=== PATIENT | female | born 1970 | race Caucasian/White ===

== ENCOUNTER 2016-08-17 12:22 | Emergency (ER) | payer OTHER ==
--- NOTE | 2016-08-17 15:30 | ED CLINICAL REPORT ---
Clinical Report - Physicians/Mid Levels [facility] [address] [place] [address] 08/17/2016 12:26 Patient: IVIS POWELL Time Seen: 12:50. Arrived- By private vehicle. Historian- patient. HISTORY OF PRESENT ILLNESS Chief Complaint: ABDOMINAL PAIN and NAUSEA. At its maximum, severity described as moderate. When seen in the E.D., severity described as moderate. Modifying factors. Not worsened by anything. Not relieved by anything. It is described as "pain" and it is described as located in the upper abdomen. This started about 3 weeks ago and is still present. The patient has had nausea. No loss of appetite, vomiting or diarrhea. (Pt states she has a history of autoimmune hepatitis, but has not been back to see a specialist since being dx 3 years ago. Pt states she doesn't like "pharmaceuticals", so she has been on supplements to "detox the liver" through a naturopathic doctor. She feels as though something has been worsening with her liver lately, based on the way she's been feeling. No jaundice.). Similar symptoms previously: (Feels similar to when pt was first dx.). Recent medical care: ( Pt had labs done a month ago, and states her numbers were between 200-400 (not sure which was AST, ALT, or alk phos).). Not recently seen/assessed. REVIEW OF SYSTEMS No constipation, black stools, hematemesis, difficulty with urination or pain with urination. No urinary frequency, bloody stools, fever, headache or sore throat. No blurred vision, chest pain, difficulty breathing, cough or joint pain. No skin rash, chills or back pain. Denies current . All systems otherwise negative, except as recorded above. PAST HISTORY Problems: Hepatitis. Additional Surgeries: Breast Augmentation. Cholecystectomy. Fibroid removal. Tonsillectomy. Tummy tuck. Medications: another supplement for liver health. Ashwanda supplement. wellness formula. Adrenal health. Liver cleanse. Liver health. Iron Oral. Vitamin B-12 Oral. Vitamin D Oral. Cymbalta Oral. Percocet Oral. Allergies: No Known Drug Allergy. SOCIAL HISTORY Never smoker. Alcohol use. History of drug use: marijuana. ADDITIONAL NOTES The nursing notes have been reviewed. PHYSICAL EXAM Vital Signs: 08/17/2016 12:30 BP: 150/71. HR: 87. RR: 16. O2 saturation: 9%. Temp: 98.1 F. Pain level now: 5/10. Have been reviewed. Appearance: Alert. Oriented X3. No acute distress. Eyes: Pupils equal, round and reactive to light. Eyes normal inspection. ENT: Nose normal. Neck: Normal inspection. CVS: Normal heart rate and rhythm. Heart sounds normal. Pulses normal. Respiratory: No respiratory distress. Breath sounds normal. Abdomen: Soft. Mild tenderness in the right upper quadrant. Back: Normal inspection. No CVA tenderness. Skin: Skin warm and dry. Normal skin color. No rash. Normal skin turgor. Extremities: Extremities exhibit normal ROM. No lower extremity edema. Neuro: Oriented X 3. No motor deficit. No sensory deficit. LABS, X-RAYS, AND EKG Abdominal Sonogram: Hepatomegaly is present. Pancreas normal. No free fluid. (Surgically absent GB.). Study included the gallbladder and upper abdomen. Prior studies were not available for comparison. The study was interpreted by the radiologist and discussed with the radiologist. Laboratory Tests: CBC w Diff: (SHAYAN: 08/17/2016 12:50) ( MsgRcvd 08/17/2016 13:49) Final results Test Result Flag Units (Reference) WHITE BLOOD COUNT 7.5 K/uL (4.5-11.5) RED BLOOD COUNT 4.78 M/uL (4.00-5.20) HEMOGLOBIN 15.6 gm/dL (12.0-16.0) HEMATOCRIT 46.0 % (36.0-46.0) MEAN CELL VOLUME 96 fL (80-100) MEAN CORPUSCULAR HGB 33 pg (26-34) MEAN CORPUSCULAR HGB CONC 34 g/dL (31-37) RED CELL DISTRIBUTION WIDTH 12.4 % (11.6-14.8) PLATELET COUNT 223 K/uL (150-400) NEUTROPHIL % 73.7 % (50-75) LYMPH % 18.8 L % (25-40) MONO % 5.9 % (3-14) EOSINOPHIL % 1.2 % (0-4) BASOPHIL % 0.4 % (0-2) CMP: (SHAYAN: 08/17/2016 12:50) ( MsgRcvd 08/17/2016 14:12) Final results Test Result Flag Units (Reference) GLUCOSE 98 mg/dL (70-110) BUN 7 mg/dL (7-18) CREATININE 0.8 mg/dL (0.6-1.3) Estimated GFR >60 mL/min Estimated GFR- >60 mL/min Note: Persistent reduction over 3 months in eGFR<60 mL/min/1.73 m2 defines CKD. Patients with eGFR values>=60 mL/min/1.73 m2 may also have CKD if evidence ofpersistent proteinuria. Additional information may be foundat www.kidney.org. SODIUM 142 mmol/L (136-145) POTASSIUM 3.5 mmol/L (3.5-5.1) CHLORIDE 103 mmol/L (98-107) CARBON DIOXIDE 29 mmol/L (21-32) CALCIUM 9.2 mg/dL (8.5-10.1) TOTAL PROTEIN 7.9 g/dL (6.4-8.2) ALBUMIN 4.0 g/dL (3.3-5.0) BILIRUBIN, TOTAL 1.0 mg/dL (0.0-1.0) ALKALINE PHOSPHATASE 162 H U/L (46-116) AST (SGOT) 454 H U/L (15-37) ALT (SGPT) 609 H U/L (12-78) LIPASE 137 U/L (73-393) . Pulse Oximetry: 08/17/2016 12:30 O2 saturation: 9%. (FIO2 - room air). Interpretation: normal. PROGRESS AND PROCEDURES Course of Care: Pt was given a dose of Zofran for nausea, and later, ASA for a headache. She was worked up with labs, which showed a normal white count, but transaminases and alk phos which appear to have risen significantly since the pt's last lab analysis. US did not show any gallstones. I did d/w pt that it is very important that she see her liver specialist again, and discuss the best plan to manage her liver failure. I have d/w her that it is better for her health, in the long-run, to be open to all options, then to continue with a regimen that is not working. Patient counseled in person regarding the patient's stable condition, test results, diagnosis and need for follow-up. Concerns were addressed. Old medical records reviewed. Disposition: Discharged. Condition: stable and improved. CLINICAL IMPRESSION Chronic autoimmune hepatitis. INSTRUCTIONS Drink plenty of fluids. (Your labs show that your liver enzymes are elevated, even beyond what they were the last time they were checked. It is very important that you follow up with a liver specialist regarding this problem. You also need to establish care with a primary care physician, whether it is Dr. Burton or somebody else.). Warnings: GENERAL WARNINGS: Return or contact your physician immediately if your condition worsens or changes unexpectedly, if not improving as expected, or if other problems arise. Your Current Medications: CONTINUE TAKING THE FOLLOWING MEDICATIONS: Adrenal health*. another supplement for liver health*. Ashwanda supplement*. Cymbalta Oral. Iron Oral. Liver cleanse*. Liver health*. Percocet Oral. Vitamin B-12 Oral. Vitamin D Oral. wellness formula*. Prescription Medications: Zofran (orally disintegrating tablets) 4 mg: take 1-2 orally every 6 hours as needed for nausea. Dispense fifteen (15). No refill. Substitution is permissible. Follow-up: Follow up with a specialist Liver care clinic at [facility]: [phone]. Call for the next available appointment. Reason for referral: Untreated and worsening autoimmune hepatitis. Understanding of the discharge instructions verbalized by patient. Follow-up with: [facility], Family [facility], , [address] [place] [address], [address], [place] [phone] Follow up. Call for the next available appointment. Reason for referral: Establish care. (Electronically signed by Angélica Torres MD 08/26/2016 19:50)
--- NOTE | 2016-08-17 15:30 | ED CLINICAL REPORT ---
Clinical Report - Physicians/Mid Levels [facility] [address] [place] [address] 08/17/2016 12:26 Patient: IVIS POWELL Time Seen: 12:50. Arrived- By private vehicle. Historian- patient. HISTORY OF PRESENT ILLNESS Chief Complaint: ABDOMINAL PAIN and NAUSEA. At its maximum, severity described as moderate. When seen in the E.D., severity described as moderate. Modifying factors. Not worsened by anything. Not relieved by anything. It is described as "pain" and it is described as located in the upper abdomen. This started about 3 weeks ago and is still present. The patient has had nausea. No loss of appetite, vomiting or diarrhea. (Pt states she has a history of autoimmune hepatitis, but has not been back to see a specialist since being dx 3 years ago. Pt states she doesn't like "pharmaceuticals", so she has been on supplements to "detox the liver" through a naturopathic doctor. She feels as though something has been worsening with her liver lately, based on the way she's been feeling. No jaundice.). Similar symptoms previously: (Feels similar to when pt was first dx.). Recent medical care: ( Pt had labs done a month ago, and states her numbers were between 200-400 (not sure which was AST, ALT, or alk phos).). Not recently seen/assessed. REVIEW OF SYSTEMS No constipation, black stools, hematemesis, difficulty with urination or pain with urination. No urinary frequency, bloody stools, fever, headache or sore throat. No blurred vision, chest pain, difficulty breathing, cough or joint pain. No skin rash, chills or back pain. Denies current . All systems otherwise negative, except as recorded above. PAST HISTORY Problems: Hepatitis. Additional Surgeries: Breast Augmentation. Cholecystectomy. Fibroid removal. Tonsillectomy. Tummy tuck. Medications: another supplement for liver health. Ashwanda supplement. wellness formula. Adrenal health. Liver cleanse. Liver health. Iron Oral. Vitamin B-12 Oral. Vitamin D Oral. Cymbalta Oral. Percocet Oral. Allergies: No Known Drug Allergy. SOCIAL HISTORY Never smoker. Alcohol use. History of drug use: marijuana. ADDITIONAL NOTES The nursing notes have been reviewed. PHYSICAL EXAM Vital Signs: 08/17/2016 12:30 BP: 150/71. HR: 87. RR: 16. O2 saturation: 9%. Temp: 98.1 F. Pain level now: 5/10. Have been reviewed. Appearance: Alert. Oriented X3. No acute distress. Eyes: Pupils equal, round and reactive to light. Eyes normal inspection. ENT: Nose normal. Neck: Normal inspection. CVS: Normal heart rate and rhythm. Heart sounds normal. Pulses normal. Respiratory: No respiratory distress. Breath sounds normal. Abdomen: Soft. Mild tenderness in the right upper quadrant. Back: Normal inspection. No CVA tenderness. Skin: Skin warm and dry. Normal skin color. No rash. Normal skin turgor. Extremities: Extremities exhibit normal ROM. No lower extremity edema. Neuro: Oriented X 3. No motor deficit. No sensory deficit. LABS, X-RAYS, AND EKG Abdominal Sonogram: Hepatomegaly is present. Pancreas normal. No free fluid. (Surgically absent GB.). Study included the gallbladder and upper abdomen. Prior studies were not available for comparison. The study was interpreted by the radiologist and discussed with the radiologist. Laboratory Tests: CBC w Diff: (SHAYAN: 08/17/2016 12:50) ( MsgRcvd 08/17/2016 13:49) Final results Test Result Flag Units (Reference) WHITE BLOOD COUNT 7.5 K/uL (4.5-11.5) RED BLOOD COUNT 4.78 M/uL (4.00-5.20) HEMOGLOBIN 15.6 gm/dL (12.0-16.0) HEMATOCRIT 46.0 % (36.0-46.0) MEAN CELL VOLUME 96 fL (80-100) MEAN CORPUSCULAR HGB 33 pg (26-34) MEAN CORPUSCULAR HGB CONC 34 g/dL (31-37) RED CELL DISTRIBUTION WIDTH 12.4 % (11.6-14.8) PLATELET COUNT 223 K/uL (150-400) NEUTROPHIL % 73.7 % (50-75) LYMPH % 18.8 L % (25-40) MONO % 5.9 % (3-14) EOSINOPHIL % 1.2 % (0-4) BASOPHIL % 0.4 % (0-2) CMP: (SHAYAN: 08/17/2016 12:50) ( MsgRcvd 08/17/2016 14:12) Final results Test Result Flag Units (Reference) GLUCOSE 98 mg/dL (70-110) BUN 7 mg/dL (7-18) CREATININE 0.8 mg/dL (0.6-1.3) Estimated GFR >60 mL/min Estimated GFR- >60 mL/min Note: Persistent reduction over 3 months in eGFR<60 mL/min/1.73 m2 defines CKD. Patients with eGFR values>=60 mL/min/1.73 m2 may also have CKD if evidence ofpersistent proteinuria. Additional information may be foundat www.kidney.org. SODIUM 142 mmol/L (136-145) POTASSIUM 3.5 mmol/L (3.5-5.1) CHLORIDE 103 mmol/L (98-107) CARBON DIOXIDE 29 mmol/L (21-32) CALCIUM 9.2 mg/dL (8.5-10.1) TOTAL PROTEIN 7.9 g/dL (6.4-8.2) ALBUMIN 4.0 g/dL (3.3-5.0) BILIRUBIN, TOTAL 1.0 mg/dL (0.0-1.0) ALKALINE PHOSPHATASE 162 H U/L (46-116) AST (SGOT) 454 H U/L (15-37) ALT (SGPT) 609 H U/L (12-78) LIPASE 137 U/L (73-393) . Pulse Oximetry: 08/17/2016 12:30 O2 saturation: 9%. (FIO2 - room air). Interpretation: normal. PROGRESS AND PROCEDURES Course of Care: Pt was given a dose of Zofran for nausea, and later, ASA for a headache. She was worked up with labs, which showed a normal white count, but transaminases and alk phos which appear to have risen significantly since the pt's last lab analysis. US did not show any gallstones. I did d/w pt that it is very important that she see her liver specialist again, and discuss the best plan to manage her liver failure. I have d/w her that it is better for her health, in the long-run, to be open to all options, then to continue with a regimen that is not working. Patient counseled in person regarding the patient's stable condition, test results, diagnosis and need for follow-up. Concerns were addressed. Old medical records reviewed. Disposition: Discharged. Condition: stable and improved. CLINICAL IMPRESSION Chronic autoimmune hepatitis. INSTRUCTIONS Drink plenty of fluids. (Your labs show that your liver enzymes are elevated, even beyond what they were the last time they were checked. It is very important that you follow up with a liver specialist regarding this problem. You also need to establish care with a primary care physician, whether it is Dr. Burton or somebody else.). Warnings: GENERAL WARNINGS: Return or contact your physician immediately if your condition worsens or changes unexpectedly, if not improving as expected, or if other problems arise. Your Current Medications: CONTINUE TAKING THE FOLLOWING MEDICATIONS: Adrenal health*. another supplement for liver health*. Ashwanda supplement*. Cymbalta Oral. Iron Oral. Liver cleanse*. Liver health*. Percocet Oral. Vitamin B-12 Oral. Vitamin D Oral. wellness formula*. Prescription Medications: Zofran (orally disintegrating tablets) 4 mg: take 1-2 orally every 6 hours as needed for nausea. Dispense fifteen (15). No refill. Substitution is permissible. Follow-up: Follow up with a specialist Liver care clinic at [facility]: [phone]. Call for the next available appointment. Reason for referral: Untreated and worsening autoimmune hepatitis. Understanding of the discharge instructions verbalized by patient. Follow-up with: [facility], Family [facility], , [address] [place] [address], [address], [place] [phone] Follow up. Call for the next available appointment. Reason for referral: Establish care. (Electronically signed by Angélica Torres MD 08/26/2016 19:50)
--- NOTE | 2016-08-17 15:30 | ED ORDER SUMMARY ---
..... Patient: IVIS POWELL OrderSheet [facility] VisitID: [id number] [place] [address] 46y, F Registration Date/Time: 08/17/2016 ORDER SHEET Weight: 61.2 kg (stated) Allergies: No Known Drug Allergy GENERAL ORDERS: CMP Urgent (13:36 08/17/2016 Shivam MENDOZA) (Ack 13:39 PWeiler ER Tech1) (13:48 KPage-Kuchan R.N.) CBC w Diff Urgent (13:36 08/17/2016 Shivam MENDOZA) (Ack 13:39 PWeiler ER Tech1) (13:48 KPage-Kuchan R.N.) Lipase Urgent (13:36 08/17/2016 Shivam MENDOZA) (Ack 13:39 PWeiler ER Tech1) (13:48 KPage-Kuchan R.N.) US Abdomen Limited (No) Urgent (14:19 08/17/2016 Shivam MENDOZA) (Ack 14:38 OHernandez) (16:00 Lázaro R.N.) MEDICATION ORDERS: Aspirin PO 325 mg (Do not crush or chew, NOW) (15:23 08/17/2016 Shivam MENDOZA) (Cancelled: Other15:25 Shivam MENDOZA) Aspirin PO 81 mg (3 tabs PO x 1 now) (15:24 08/17/2016 Shivam MENDOZA) (Ack 15:25 KPage-Kuchan R.N.) (15:29 KPage-Trenan R.N.) IV FLUIDS: Zofran IV 8 mg (NOW) (13:35 08/17/2016 Shivam MENDOZA) (Ack 13:37 KPage-Kuchan R.N.) (13:48 KPage-Kuchan R.N.) IV Saline Lock (13:36 08/17/2016 Shivam MENDOZA) (13:37 KPage-Kukhanhn R.N.) ORDER SHEET NOTES: [Electronically signed by Promise Olivera R.N. (16:01 08/17/2016)] [Electronically signed by Angélica Torres MD (19:50 08/26/2016)] [Electronically locked/signed by Promise Olivera R.N. (16:01 08/17/2016)]
--- NOTE | 2016-08-17 15:30 | ED NURSING NOTES ---
Clinical Report - Nurses [facility] [address] [place] [address] 08/17/2016 12:26 [id number] Triage time 12:30. Acuity: LEVEL 3. Chief Complaint: ABDOMINAL PAIN and NAUSEA. Alert. No acute distress. USHA COMA SCORE: [place] Coma Scale: 15- eyes open spontaneously (4); best verbal response- oriented x 4 (5); best motor response- obeys commands (6). --12:41 Promise Olivera R.N. 12:30 08/17/16. BP: 150/71. HR: 87. RR: 16. O2 saturation: 9%. Temp: 98.1 F (oral). Pain level now: 5/10. --12:41 Promise Olivera R.N. Weight: 61.2 kg stated. Height/Length: 65 inches Per Patient. BMI: 22.5. --12:40 Promise Olivera R.N. Medications Percocet Oral. --12:33 Promise Olivera R.N. Cymbalta Oral. --12:34 Promise Olivera R.N. Iron Oral. Vitamin B-12 Oral. Vitamin D Oral. --12:34 Promise Olivera R.N. Liver health. --12:34 Promise Olivera R.N. Liver cleanse. --12:34 Promise Olivera R.N. Adrenal health. --12:35 Promise Olivera R.N. wellness formula. --12:35 Promise Olivera R.N. Ashwanda supplement. --12:36 Promise Olivera R.N. another supplement for liver health. --12:37 Promise Olivera R.N. Medication/allergy information source: the patient. --12:41 Promise Olivera R.N. Allergies No Known Drug Allergy. --12:37 Promise Olivera R.N. History Arrived by private vehicle. Historian: patient. Unaccompanied. Primary physician (Micheal-orders her labs, but no family practice doc at this time). Onset. (about 3 weeks). ( has autoimmune hepatitis and has monthly blood tests, takes supplements). PAST MEDICAL HX: Last normal menstrual period- July 2016. SOCIAL HX: Never smoker. Occasional alcohol use. History of drug use: marijuana. FALL RISK ASSESSMENT: Fall risk assessment completed. No fall risk identified. FUNCTIONAL ASSESSMENT: Functional assessment: no impairments noted. LEARNING NEEDS ASSESSMENT: The learning needs assessment revealed no barriers. --12:41 Promise Olivera R.N. PROBLEMS: Hepatitis. --12:30 Promise Olivera R.N. ADDITIONAL SURGERIES: Breast Augmentation. Cholecystectomy. Fibroid removal. Tonsillectomy. Tummy tuck. --12:39 Promise Olivera R.N. Assessment GENERAL / NEURO / PSYCH: Alert. Oriented X 4. Appears in no acute distress. Patient appears calm and cooperative. RESPIRATORY: Respirations not labored. SKIN: Skin is warm and dry. --12:41 Promise Olivera R.N. Interventions ID band on patient. To treatment room. --12:41 Promise Olivera R.N. PHYSICAL ASSESSMENT 12:43 08/17/16. Ambulatory to room. Patient gowned. GENERAL / NEURO / PSYCH: Alert. Oriented X 4. Appears in no acute distress. RESPIRATORY: Respirations not labored. SKIN: Skin is warm and dry. --12:43 Promise Olivera R.N. NURSING PROGRESS NOTES 12:43 08/17/16. Patient gowned. Head of bed elevated. Reassurance given. Call light placed in reach. Side rails up x 1. Bed placed in lowest position. Brakes of bed on. --12:43 Promise Olivera R.N. 12:58 08/17/2016 Site #1 started via IV in the right antecubital space with an 20g angiocath, with aseptic technique and good blood return; one attempt. Blood drawn: rainbow set. Labeled in the presence of the patient and sent to the lab. Saline lock flushed with 10 mL saline. --12:58 Promise Olivera R.N. 12:58 08/17/16. :patient confirmed. Clean catch urine collected; sample sent to lab. Specimen labeled in the presence of the patient. --12:58 Promise Olivera R.N. 13:43 08/17/2016 Zofran (Ondansetron HCl) IVP 8 mg given. via site #1. Allergies verified and confirmed 5 rights. IV patency established. IV site checked: no pain, redness, or swelling. IV flushed thoroughly pre- and post-medication administration. IVP given by RN. --13:48 Ethan Avery R.N. Reassurance given (warm blankets provided for comfort). Patient identifiers checked. Call light placed in reach. Side rails up x 1. Bed placed in lowest position. Brakes of bed on. Patient waiting for lab results. ( pt updated on time frame for labs, given meds as ordered, call light in hand, lights down for comfort,). --13:50 Ethan Avery R.N. 13:48 08/17/16. BP: 116/72. HR: 80. RR: 15. O2 saturation: 94% on room air. --13:50 Ethan Avery R.N. ( pt reports no change in nausea after zofran given, US at bedside). --14:32 Ethan Avery R.N. Bedside pelvic sonogram performed by roof service technician. --14:32 Ethan Avery R.N. 15:06 08/17/16. BP: 111/52. HR: 80. RR: 15. --15:06 Ethan Avery R.N. Call light placed in reach. Bed placed in lowest position. Brakes of bed on. --15:07 Ethan Avery R.N. 14:56 08/17/2016 Zofran IVP Response: no adverse reaction symptoms are the same. The patient feels the same. --15:21 Ethan Avery R.N. 15:29 08/17/2016 Aspirin PO 81 mg given. Allergies verified and confirmed 5 rights. --15:29 Page-Kuchan, Karyol, R.N. 15:50. The patient is calm and resting quietly. Overall patient status is improved- she states feels the same. SKIN: Skin is warm and dry. --15:59 Promise Olivera R.N. DISPOSITION / DISCHARGE Departure time: 1550. No learning barriers present. Discharge instructions provided and reviewed with the patient. Reviewed medication(s). Prescription(s) given to the patient. Patient verbalized understanding. Written instructions provided in Spanish. The patient was discharged home and unaccompanied at time of discharge. She left the Emergency Department ambulatory and via private vehicle. FALL RISK ASSESSMENT: Fall risk assessment completed. No fall risk identified. --15:58 Promise Olivera R.N. 15:50 08/17/16. BP: 103/64. HR: 82. RR: 16. O2 saturation: 100% on room air. Pain level now: 03/25. --15:58 Promise Olivera R.N. copies of labs given to pt by ERMGustavo. --16:00 Promise Olivera R.N. Locked/Released at 08/17/2016 16:01 by Promise Olivera R.N.
--- NOTE | 2016-08-17 15:30 | ED ORDER SUMMARY ---
..... Patient: IVIS POWELL OrderSheet [facility] VisitID: [id number] [place] [address] 46y, F Registration Date/Time: 08/17/2016 ORDER SHEET Weight: 61.2 kg (stated) Allergies: No Known Drug Allergy GENERAL ORDERS: CMP Urgent (13:36 08/17/2016 Shivam MENDOZA) (Ack 13:39 PWeiler ER Tech1) (13:48 KPage-Kuchan R.N.) CBC w Diff Urgent (13:36 08/17/2016 Shivam MENDOZA) (Ack 13:39 PWeiler ER Tech1) (13:48 KPage-Kuchan R.N.) Lipase Urgent (13:36 08/17/2016 Shivam MENDOZA) (Ack 13:39 PWeiler ER Tech1) (13:48 KPage-Kuchan R.N.) US Abdomen Limited (No) Urgent (14:19 08/17/2016 Shivam MENDOZA) (Ack 14:38 OHernandez) (16:00 Lázaro R.N.) MEDICATION ORDERS: Aspirin PO 325 mg (Do not crush or chew, NOW) (15:23 08/17/2016 Shivam MENDOZA) (Cancelled: Other15:25 Shivam MENDOZA) Aspirin PO 81 mg (3 tabs PO x 1 now) (15:24 08/17/2016 Shivam MENDOZA) (Ack 15:25 KPage-Kuchan R.N.) (15:29 KPage-Trenan R.N.) IV FLUIDS: Zofran IV 8 mg (NOW) (13:35 08/17/2016 Shivam MENDOZA) (Ack 13:37 KPage-Kuchan R.N.) (13:48 KPage-Kuchan R.N.) IV Saline Lock (13:36 08/17/2016 Shivam MENDOZA) (13:37 KPage-Kukhanhn R.N.) ORDER SHEET NOTES: [Electronically signed by Promise Olivera R.N. (16:01 08/17/2016)] [Electronically signed by Angélica Torres MD (19:50 08/26/2016)] [Electronically locked/signed by Promise Olivera R.N. (16:01 08/17/2016)]
--- NOTE | 2016-08-17 16:04 | DIAGNOSTIC IMAGING REPORT ---
PROCEDURE: US ABDOMEN ULTRASOUND-LIMITED INDICATION: ABNORMAL LFT TECHNIQUE: Ruby scale and color Doppler sonographic images of the abdomen were obtained without comparison. COMPARISON: None. FINDINGS: The liver is normal in size, and contour. The liver is of slightly heterogeneous which may indicate intrinsic liver disease. No mass or intrahepatic biliary dilatation. The gallbladder is surgically absent. No pericholecystic fluid or Tabares sign. The extrahepatic common duct is normal measuring 10.8 mm The visualized pancreas is normal without ductal dilatation or peripancreatic fluid collection. The abdominal aorta is normal in its course and caliber. The retrohepatic inferior vena cava is patent. There is appropriate hepatopetal flow in the portal vein. The right kidney measures 10.7 cm in length. There is no perihepatic or perisplenic ascites. IMPRESSION: 1. Heterogeneous liver which could indicate intrinsic liver disease.
--- NOTE | 2016-08-26 19:50 | ED DISCHARGE INSTRUCTIONS ---
Patient: IVIS POWELL General Instructions [facility] VisitID: [id number] [place] Hammonds[place]yna [place] [phone] 46y, F Registration Date/Time: 08/17/2016 Chronic autoimmune hepatitis. INSTRUCTIONS Drink plenty of fluids. (Your labs show that your liver enzymes are elevated, even beyond what they were the last time they were checked. It is very important that you follow up with a liver specialist regarding this problem. You also need to establish care with a primary care physician, whether it is Dr. Burton or somebody else.). Warnings: GENERAL WARNINGS: Return or contact your physician immediately if your condition worsens or changes unexpectedly, if not improving as expected, or if other problems arise. Your Current Medications: CONTINUE TAKING THE FOLLOWING MEDICATIONS: Adrenal health*. another supplement for liver health*. Ashwanda supplement*. Cymbalta Oral. Iron Oral. Liver cleanse*. Liver health*. Percocet Oral. Vitamin B-12 Oral. Vitamin D Oral. wellness formula*. Prescription Medications: Zofran (orally disintegrating tablets) 4 mg: take 1-2 orally every 6 hours as needed for nausea. Dispense fifteen (15). No refill. Substitution is permissible. Follow-up: Follow up with a specialist Liver care clinic at Located within [facility]: [phone]. Call for the next available appointment. Reason for referral: Untreated and worsening autoimmune hepatitis. Understanding of the discharge instructions verbalized by patient. Follow-up with: [facility], [facility], , [address] [place] [address], [address], [place] [phone] Follow up. Call for the next available appointment. Reason for referral: Establish care. (Electronically signed by Angélica Torres MD 08/26/2016 19:50)
--- NOTE | 2016-08-26 19:50 | ED DISCHARGE INSTRUCTIONS ---
Patient: IVIS POWELL General Instructions [facility] VisitID: [id number] Nurys [place]yna [place] [phone] 46y, F Registration Date/Time: 08/17/2016 Chronic autoimmune hepatitis. INSTRUCTIONS Drink plenty of fluids. (Your labs show that your liver enzymes are elevated, even beyond what they were the last time they were checked. It is very important that you follow up with a liver specialist regarding this problem. You also need to establish care with a primary care physician, whether it is Dr. Burton or somebody else.). Warnings: GENERAL WARNINGS: Return or contact your physician immediately if your condition worsens or changes unexpectedly, if not improving as expected, or if other problems arise. Your Current Medications: CONTINUE TAKING THE FOLLOWING MEDICATIONS: Adrenal health*. another supplement for liver health*. Ashwanda supplement*. Cymbalta Oral. Iron Oral. Liver cleanse*. Liver health*. Percocet Oral. Vitamin B-12 Oral. Vitamin D Oral. wellness formula*. Prescription Medications: Zofran (orally disintegrating tablets) 4 mg: take 1-2 orally every 6 hours as needed for nausea. Dispense fifteen (15). No refill. Substitution is permissible. Follow-up: Follow up with a specialist Liver care clinic at [facility]: [phone]. Call for the next available appointment. Reason for referral: Untreated and worsening autoimmune hepatitis. Understanding of the discharge instructions verbalized by patient. Follow-up with: [facility], [facility], , [address] [place] [address], [address], [place] [phone] Follow up. Call for the next available appointment. Reason for referral: Establish care. (Electronically signed by Angélica Torres MD 08/26/2016 19:50)
--- NOTE | 2016-08-26 19:51 | ED MAR SUMMARY ---
..... Medication Administration Record [facility] [address] [place] [address] Patient: IVIS POWELL Visit ID: [id number] 46y, F Weight: 61.2 kg Height/Length: 65 in BMI: 22.5 ALLERGIES: No Known Drug Allergy Given 13:43 08/17/2016 Ethan Avery RLencho Medication Administered: ZOFRAN [IVP] (ONDANSETRON HCL), Dose: 8 mg IVP, Site: #1 right AC. Medication Ordered: Zofran IV 8 mg (NOW). Given 15:29 08/17/2016 Ethan Avery, RLencho Medication Administered: ASPIRIN [PO], Dose: 81 mg PO. Medication Ordered: Aspirin PO 81 mg (3 tabs PO x 1 now).
--- NOTE | 2016-08-26 19:51 | ED MED RECONCILIATION SUMMARY ---
Patient: IVIS POWELL Medication Reconciliation Report [facility] VisitID: [id number] [address] [place] [address] 46y, F Registration Date/Time: 08/17/2016 Weight: 61.2 kg Height/Length: 65 in. BMI: 22.5 ALLERGIES: No Known Drug Allergy The patient's Home Medications are listed below: CONTINUE TAKING THE FOLLOWING MEDICATIONS: Adrenal health another supplement for liver health Ashwanda supplement Cymbalta Oral Iron Oral Liver cleanse Liver health Percocet Oral Vitamin B-12 Oral Vitamin D Oral wellness formula The source(s) of the original Home Medication information: patient The following Medications were given to the patient in the Emergency Department: Zofran [IVP] IVP 8 mg, administered: 08/17/2016 1:43:00 PM Aspirin [PO] PO 81 mg, administered: 08/17/2016 3:29:00 PM The following Medications were prescribed to the patient: Zofran (orally disintegrating tablets) 4 mg: take 1-2 orally every 6 hours as needed for nausea. Dispense fifteen (15). No refill. Substitution is permissible. -- Angélica Torres MD
--- NOTE | 2016-08-26 19:51 | ED MAR SUMMARY ---
..... Medication Administration Record [facility] [address] [place] [address] Patient: IVIS POWELL Visit ID: [id number] 46y, F Weight: 61.2 kg Height/Length: 65 in BMI: 22.5 ALLERGIES: No Known Drug Allergy Given 13:43 08/17/2016 Ethan Avery RLencho Medication Administered: ZOFRAN [IVP] (ONDANSETRON HCL), Dose: 8 mg IVP, Site: #1 right AC. Medication Ordered: Zofran IV 8 mg (NOW). Given 15:29 08/17/2016 Ethan Avery, RLencho Medication Administered: ASPIRIN [PO], Dose: 81 mg PO. Medication Ordered: Aspirin PO 81 mg (3 tabs PO x 1 now).
--- NOTE | 2016-08-26 19:51 | ED MED RECONCILIATION SUMMARY ---
Patient: IVIS POWELL Medication Reconciliation Report [facility] VisitID: [id number] [address] [place] [address] 46y, F Registration Date/Time: 08/17/2016 Weight: 61.2 kg Height/Length: 65 in. BMI: 22.5 ALLERGIES: No Known Drug Allergy The patient's Home Medications are listed below: CONTINUE TAKING THE FOLLOWING MEDICATIONS: Adrenal health another supplement for liver health Ashwanda supplement Cymbalta Oral Iron Oral Liver cleanse Liver health Percocet Oral Vitamin B-12 Oral Vitamin D Oral wellness formula The source(s) of the original Home Medication information: patient The following Medications were given to the patient in the Emergency Department: Zofran [IVP] IVP 8 mg, administered: 08/17/2016 1:43:00 PM Aspirin [PO] PO 81 mg, administered: 08/17/2016 3:29:00 PM The following Medications were prescribed to the patient: Zofran (orally disintegrating tablets) 4 mg: take 1-2 orally every 6 hours as needed for nausea. Dispense fifteen (15). No refill. Substitution is permissible. -- Angélica Torres MD
== END 2016-08-17 15:50 | disposition home or self-care (01) ==
LOC: ED SRH 12:22
DX: K75.4 Autoimmune hepatitis (principal)
CPT/HCPCS: 90074; 90100; 92235; 95059